=== PATIENT | female | born 1945 | race American Indian/Alaskan Native ===

== ENCOUNTER 2017-03-03 15:13 | Emergency (ER) | payer MEDICARE, MEDICAID ==
[2017-03-03] MEDS ORDERED: Sodium Chloride 0.9% 10 ML Syringe FLUSH PRN (15:39)
[2017-03-03 15:41] VITALS: BP 154/75
--- NOTE | 2017-03-03 15:48 | EDM.PDOC ---
ED HPI GENERAL MEDICAL PROBLEM - General Chief Complaint: Neuro Symptoms/Deficits Stated Complaint: IN BY AMBULANCE Time Seen by Provider: 03/03/17 15:38 Source of Information: Reports: Patient, Old Records History Limitations: Reports: No Limitations - History of Present Illness INITIAL COMMENTS - FREE TEXT/NARRATIVE: 71 yo female brought in by EMS from clinic with c/o mild confusion per staff. Pt was being evaluated for elevated liver enzymes and had an ultrasound that revealed ascites per the Provider from clinic. Pt c/o tenderness to mid abdomen and states that yesterday she had an episode of black stools. Also c/o decreased appetite. Pt is A&O x 3 upon arrival. Onset: Today Location: Reports: Abdomen Quality: Reports: Ache Severity: Mild Improves with: Reports: None Worsens with: Reports: None Associated Symptoms: Reports: No Other Symptoms - Related Data Allergies Allergy/AdvReac Type Severity Reaction Status Date / Time acetaminophen Allergy Cannot Verified 03/03/17 15:34 [From Darvocet-N] Remember propoxyphene Allergy Cannot Verified 03/03/17 15:34 [From Darvocet-N] Remember Home Meds: Home Meds Lansoprazole [Prevacid] 30 mg PO DAILY 04/12/14 [History] Methotrexate Sodium [Methotrexate] 8 tab PO ASDIRECTED 04/12/14 [History] Zolpidem [Ambien] 10 mg PO DAILY 04/12/14 [History] oxyCODONE 30 mg PO Q8H PRN 04/12/14 [History] Lisinopril 30 mg PO DAILY 09/10/14 [History] Albuterol [Proventil HFA] 2 puff PO ASDIRECTED 03/03/17 [History] Cholecalciferol (Vitamin D3) [Vitamin D3] 1,000 unit PO ASDIRECTED 03/03/17 [ History] Ergocalciferol (Vitamin D2) [Vitamin D2] 50,000 unit PO ASDIRECTED 03/03/17 [ History] Folic Acid 1 mg PO DAILY 03/03/17 [History] Gabapentin [Neurontin] 600 mg PO DAILY 03/03/17 [History] Social & Family History - Tobacco Use Smoking Status *Q: Former Smoker Years of Tobacco use: 40 Used Tobacco, but Quit: Yes Month Tobacco Last Used: unsure Second Hand Smoke Exposure: No - Alcohol Use Days Per Week of Alcohol Use: 0 - Recreational Drug Use Recreational Drug Use: No - Living Situation & Occupation Living situation: Reports: , with Family Occupation: Retired ED ROS GENERAL - Review of Systems Review Of Systems: ROS reveals no pertinent complaints other than HPI. ED EXAM, NEURO - Physical Exam Exam: See Below Exam Limited By: No Limitations General Appearance: Alert, WD/WN, No Apparent Distress Eye Exam: Bilateral Eye: Normal Inspection, PERRL Ears: Normal External Exam, Normal Canal, Hearing Grossly Normal, Normal TMs Nose: Normal Inspection, Normal Mucosa, No Blood Throat/Mouth: Normal Inspection, Normal Lips, Normal Teeth, Normal Gums, Normal Oropharynx, Normal Voice, No Airway Compromise Head Exam: Atraumatic, Normocephalic Neck: Normal Inspection, Supple, Non-Tender, Full Range of Motion Respiratory/Chest: No Respiratory Distress, Lungs Clear, Normal Breath Sounds, No Accessory Muscle Use, Chest Non-Tender Cardiovascular: Normal Peripheral Pulses, Regular Rate, Rhythm, No Edema, No Gallop, No JVD, No Murmur, No Rub GI/Abdominal: Normal Bowel Sounds, Soft, No Organomegaly, No Abnormal Bruit, No Mass, Distended, Tender (mid abdomen diffusely), Hepatomegaly Rectal (Female) Exam: Normal Exam, Normal Rectal Tone Neurological: Alert, Normal Mood/Affect, Normal Dorsiflexion, CN II-XII Intact, Normal Plantar Flexion, No Motor/Sensory Deficits, Oriented x 3 Skin Exam: Warm, Dry, Intact, Normal Color, No Rash Course - Vital Signs Last Recorded V/S: Last Vital Signs Temp 98.6 F 03/03/17 15:37 Pulse 77 03/03/17 15:37 Resp 16 03/03/17 15:37 BP 154/75 H 03/03/17 15:37 Pulse Ox 99 03/03/17 15:37 - Orders/Labs/Meds Orders: Active Orders 24 hr Category Date Time Status Sodium Chloride 0.9% [Saline Flush] Med 03/03/17 15:39 Active 10 ml FLUSH ASDIRECTED PRN Saline Lock Insert [OM.PC] Stat Oth 03/03/17 15:39 Ordered Medication Orders Sodium Chloride (Saline Flush) 10 ml FLUSH ASDIRECTED PRN PRN Reason: Keep Vein Open Last Admin: 03/03/17 16:47 Dose: 10 ml Labs: Laboratory Tests 03/03/17 03/03/17 03/03/17 Range/Units 15:49 15:49 15:49 WBC 8.0 (5.0-10.0) 10^3/uL RBC 3.65 L (4.2-5.4) 10^6/uL Hgb 13.2 (12.0-16.0) g/dL Hct 38.4 (37.0-47.0) % MCV 105.2 H (80-100) fL MCH 36.2 H (27.0-34.0) pg MCHC 34.4 (33.0-35.0) g/dL Plt Count 138 L (150-450) 10^3/uL Neut % (Auto) 60.9 (42.2-75.2) % Lymph % (Auto) 27.6 (20.5-50.1) % [place] % (Auto) 9.7 H (2-8) % Eos % (Auto) 1.6 (1.0-3.0) % Baso % (Auto) 0.2 (0.0-1.0) % Sodium 138 (135-145) mmol/L Potassium 4.0 (3.6-5.0) mmol/L Chloride 105 (101-111) mmol/L Carbon Dioxide 23.0 (21.0-31.0) mmol/L Anion Gap 14.0 BUN 6 L (7-18) mg/dL Creatinine 0.7 (0.6-1.3) mg/dL Est Cr Clr Drug Dosing 72.20 mL/min Estimated GFR (MDRD) > 60 BUN/Creatinine Ratio 8.57 Glucose 114 H (74-105) mg/dL Calcium 9.2 (8.4-10.2) mg/dl Total Bilirubin 3.7 H (0.2-1.0) mg/dL AST 61 H (10-42) IU/L ALT 29 (10-60) IU/L Alkaline Phosphatase 153 H (42-121) IU/L Ammonia 24 (11-35) umol/L Total Protein 6.8 (6.7-8.2) g/dl Albumin 3.0 L (3.2-5.5) g/dl Globulin 3.8 Albumin/Globulin Ratio 0.79 Meds: Medications Generic Name Dose Route Start Last Admin Trade Name Freq PRN Reason Stop Dose Admin Sodium Chloride 10 ml 03/03/17 15:39 03/03/17 16:47 Saline Flush FLUSH 10 ml ASDIRECTED PRN Administration Keep Vein Open - Re-Assessments/Exams Free Text/Narrative Re-Assessment/Exam: 03/03/17 17:30 Pt continues to remain A&O x 3. Able to speak on current events, denies pain currently. Worried about getting to her vehicle as she was brought by ambulance. Departure - Departure Time of Disposition: 17:32 Disposition: Home, Self-Care 01 Condition: Good Clinical Impression: Well adult exam Ascites Qualifiers: Ascites type: other type Qualified Code(s): R18.8 - Other ascites - Discharge Information Instructions: Ascites Forms: ED Department Discharge Additional Instructions: Follow up with your PCP as needed. return for worsening symptoms - My Orders Last 24 Hours: My Active Orders 03/03/17 15:39 Sodium Chloride 0.9% [Saline Flush] 10 ml FLUSH ASDIRECTED PRN Saline Lock Insert [OM.PC] Stat - Assessment/Plan Last 24 Hours: My Active Orders 03/03/17 15:39 Sodium Chloride 0.9% [Saline Flush] 10 ml FLUSH ASDIRECTED PRN Saline Lock Insert [OM.PC] Stat
[2017-03-03 16:39] LABS: CHLORIDE,CL 105 mmol/L (101-111); SODIUM,NA 138 mmol/L (135-145)
== END 2017-03-03 17:46 | disposition home or self-care (01) ==
LOC: DL.ED 15:13
DX: R18.8 Other ascites (principal); Z88.8 Allergy status to other drugs, medicaments and biological substances; Z79.899 Other long term (current) drug therapy; Z87.891 Personal history of nicotine dependence
CPT/HCPCS: 36415; 70450; 80053; 82140; 82272; 85025; 99285; J7050; 99284

== ENCOUNTER 2017-03-23 13:06 | Emergency (ER) | payer MEDICARE, MEDICAID, OTHER ==
--- NOTE | 2017-03-23 13:40 | EDM.PDOC ---
ED HPI GENERAL MEDICAL PROBLEM - General Chief Complaint: Gastrointestinal Problem Stated Complaint: FROM RADIOLOGY Time Seen by Provider: 03/23/17 13:38 Source of Information: Reports: Patient History Limitations: Reports: No Limitations - History of Present Illness INITIAL COMMENTS - FREE TEXT/NARRATIVE: 71 yo [place] Female sent over by CT scan. Pt. had Abd. CT which reports: ( Cirrhosis, larg ascites, varices. Proximal right uteteral calculi, bilat. nephrolithiasis Onset: Today Onset Date: 03/23/17 Onset Time: 12:00 Duration: Hour(s): Location: Reports: Abdomen, Generalized Severity: Moderate Improves with: Reports: None Worsens with: Reports: None - Related Data Allergies Allergy/AdvReac Type Severity Reaction Status Date / Time acetaminophen Allergy Cannot Verified 03/23/17 13:36 [From Darvocet-N] Remember propoxyphene Allergy Cannot Verified 03/23/17 13:36 [From Darvocet-N] Remember Home Meds: Home Meds Lansoprazole [Prevacid] 30 mg PO DAILY 04/12/14 [History] Methotrexate Sodium [Methotrexate] 8 tab PO ASDIRECTED 04/12/14 [History] Zolpidem [Ambien] 10 mg PO DAILY 04/12/14 [History] oxyCODONE 30 mg PO Q8H PRN 04/12/14 [History] Lisinopril 30 mg PO DAILY 09/10/14 [History] Albuterol [Proventil HFA] 2 puff PO ASDIRECTED 03/03/17 [History] Cholecalciferol (Vitamin D3) [Vitamin D3] 1,000 unit PO ASDIRECTED 03/03/17 [ History] Ergocalciferol (Vitamin D2) [Vitamin D2] 50,000 unit PO ASDIRECTED 03/03/17 [ History] Folic Acid 1 mg PO DAILY 03/03/17 [History] Gabapentin [Neurontin] 600 mg PO DAILY 03/03/17 [History] Past Medical History Cardiovascular History: Reports: Hypertension, Other (See Below) Other Cardiovascular History: carotid atheroscerosis Respiratory History: Reports: COPD Gastrointestinal History: Reports: GERD Musculoskeletal History: Reports: Other (See Below) Other Musculoskeletal History: degeneration of Disc disease Psychiatric History: Reports: Other (See Below) Other Psychiatric History: chronic pain syndrome Endocrine/Metabolic History: Reports: Vitamin D Deficiency, Other (See Below) Other Endocrine/Metabolic History: RA, folic acid deficiency, Hematologic History: Reports: Anemia, Other (See Below) Other Hematologic History: macrocytic anemia - Past Surgical History Female Surgical History: Reports: D&C Social & Family History - Tobacco Use Smoking Status *Q: Former Smoker Years of Tobacco use: 40 Packs/Tins Daily: 1.5 Used Tobacco, but Quit: Yes Month Tobacco Last Used: unsure Second Hand Smoke Exposure: No - Caffeine Use Caffeine Use: Reports: Coffee - Alcohol Use Days Per Week of Alcohol Use: 0 - Recreational Drug Use Recreational Drug Use: No - Living Situation & Occupation Living situation: Reports: , with Family Occupation: Retired ED ROS GENERAL - Review of Systems Review Of Systems: See Below Constitutional: Reports: Weakness, Fatigue, Weight Gain HEENT: Reports: No Symptoms Respiratory: Reports: No Symptoms Cardiovascular: Reports: No Symptoms Endocrine: Reports: No Symptoms GI/Abdominal: Reports: Abdominal Pain, Decreased Appetite, Distension : Reports: No Symptoms Musculoskeletal: Reports: No Symptoms Skin: Reports: No Symptoms Neurological: Reports: No Symptoms Psychiatric: Reports: No Symptoms Hematologic/Lymphatic: Reports: No Symptoms Immunologic: Reports: No Symptoms ED EXAM, GENERAL - Physical Exam Exam: See Below Exam Limited By: No Limitations General Appearance: Alert, WD/WN, No Apparent Distress Eye Exam: Bilateral Eye: EOMI, PERRL Ears: Normal External Exam Nose: Normal Inspection Throat/Mouth: Normal Inspection Head: Atraumatic Neck: Normal Inspection Respiratory/Chest: No Respiratory Distress, Lungs Clear Cardiovascular: Normal Peripheral Pulses, Regular Rate, Rhythm Peripheral Pulses: 2+: Femoral (L), Femoral (R) GI/Abdominal: Distended Back Exam: Normal Inspection Extremities: Normal Inspection Neurological: Alert, Oriented, CN II-XII Intact Psychiatric: Normal Affect, Normal Mood Skin Exam: Warm, Dry, Intact Lymphatic: No Adenopathy Course - Vital Signs Last Recorded V/S: Last Vital Signs Temp 37.4 C 03/23/17 13:31 Pulse 82 03/23/17 13:31 Resp 16 03/23/17 13:31 BP 147/78 H 03/23/17 13:31 Pulse Ox 98 03/23/17 13:31 - Orders/Labs/Meds Labs: Laboratory Tests 09/18/17 09/18/17 09/18/17 Range/Units 14:10 14:10 14:10 WBC 6.6 (5.0-10.0) 10^3/uL RBC 3.92 L (4.2-5.4) 10^6/uL Hgb 13.9 (12.0-16.0) g/dL Hct 42.2 (37.0-47.0) % MCV 107.7 H (80-100) fL MCH 35.5 H (27.0-34.0) pg MCHC 32.9 L (33.0-35.0) g/dL Plt Count 131 L (150-450) 10^3/uL Neut % (Auto) 56.2 (42.2-75.2) % Lymph % (Auto) 24.1 (20.5-50.1) % [place] % (Auto) 17.8 H (2-8) % Eos % (Auto) 1.4 (1.0-3.0) % Baso % (Auto) 0.5 (0.0-1.0) % PT 15.5 H (9.0-12.0) SEC INR 1.5 H (0.9-1.2) APTT 32.4 (22.0-34.0) SEC Sodium 138 (135-145) mmol/L Potassium 4.3 (3.6-5.0) mmol/L Chloride 102 (101-111) mmol/L Carbon Dioxide 25.0 (21.0-31.0) mmol/L Anion Gap 15.3 BUN 5 L (7-18) mg/dL Creatinine 0.8 (0.6-1.3) mg/dL Est Cr Clr Drug Dosing TNP Estimated GFR (MDRD) > 60 BUN/Creatinine Ratio 6.25 Glucose 117 H (74-105) mg/dL Calcium 9.4 (8.4-10.2) mg/dl Total Bilirubin 4.8 H (0.2-1.0) mg/dL AST 58 H (10-42) IU/L ALT 26 (10-60) IU/L Alkaline Phosphatase 141 H (42-121) IU/L Ammonia (11-35) umol/L Total Protein 7.1 (6.7-8.2) g/dl Albumin 3.1 L (3.2-5.5) g/dl Globulin 4.0 Albumin/Globulin Ratio 0.78 Urine Color (YELLOW) Urine Appearance (CLEAR) Urine pH (5.0-9.0) Ur Specific [place] (1.005-1.030) Urine Protein (NEGATIVE) Urine Glucose (UA) (NEGATIVE) Urine Ketones (NEGATIVE) Urine Occult Blood (NEGATIVE) Urine Nitrite (NEGATIVE) Urine Bilirubin (NEGATIVE) Urine Urobilinogen (0.2-1.0) mg/dL Ur Leukocyte Esterase (NEGATIVE) Urine RBC /HPF Urine WBC (0-5/HPF) /HPF Ur Epithelial Cells /HPF Calcium Oxalate Crystal /HPF Urine Bacteria (0-FEW/HPF) /HPF Urine Yeast (0/HPF) /HPF 03/23/17 03/23/17 Range/Units 14:10 14:33 WBC (5.0-10.0) 10^3/uL RBC (4.2-5.4) 10^6/uL Hgb (12.0-16.0) g/dL Hct (37.0-47.0) % MCV (80-100) fL MCH (27.0-34.0) pg MCHC (33.0-35.0) g/dL Plt Count (150-450) 10^3/uL Neut % (Auto) (42.2-75.2) % Lymph % (Auto) (20.5-50.1) % [place] % (Auto) (2-8) % Eos % (Auto) (1.0-3.0) % Baso % (Auto) (0.0-1.0) % PT (9.0-12.0) SEC INR (0.9-1.2) APTT (22.0-34.0) SEC Sodium (135-145) mmol/L Potassium (3.6-5.0) mmol/L Chloride (101-111) mmol/L Carbon Dioxide (21.0-31.0) mmol/L Anion Gap BUN (7-18) mg/dL Creatinine (0.6-1.3) mg/dL Est Cr Clr Drug Dosing Estimated GFR (MDRD) BUN/Creatinine Ratio Glucose (74-105) mg/dL Calcium (8.4-10.2) mg/dl Total Bilirubin (0.2-1.0) mg/dL AST (10-42) IU/L ALT (10-60) IU/L Alkaline Phosphatase (42-121) IU/L Ammonia 10 L (11-35) umol/L Total Protein (6.7-8.2) g/dl Albumin (3.2-5.5) g/dl Globulin Albumin/Globulin Ratio Urine Color Dark yellow (YELLOW) Urine Appearance Cloudy (CLEAR) Urine pH 6.0 (5.0-9.0) Ur Specific [place] 1.010 (1.005-1.030) Urine Protein Negative (NEGATIVE) Urine Glucose (UA) Negative (NEGATIVE) Urine Ketones Negative (NEGATIVE) Urine Occult Blood Moderate H (NEGATIVE) Urine Nitrite Negative (NEGATIVE) Urine Bilirubin Small H (NEGATIVE) Urine Urobilinogen 2.0 H (0.2-1.0) mg/dL Ur Leukocyte Esterase Trace H (NEGATIVE) Urine RBC 10-20 H /HPF Urine WBC 10-20 H (0-5/HPF) /HPF Ur Epithelial Cells Rare /HPF Calcium Oxalate Crystal Few H /HPF Urine Bacteria Few (0-FEW/HPF) /HPF Urine Yeast Rare H (0/HPF) /HPF Departure - Departure Time of Disposition: 15:06 Disposition: DC/Tfer to Other 70 Condition: Fair Clinical Impression: Hyperbilirubinemia, Coagulopathy Liver cirrhosis Qualifiers: Hepatic cirrhosis type: alcoholic cirrhosis Ascites presence: with ascites Qualified Code(s): K70.31 - Alcoholic cirrhosis of liver with ascites - Discharge Information Referrals: PCP,None [Primary Care Provider] - Forms: ED Department Discharge, Interfacility Transfer [facility]
[2017-03-23 14:41] LABS: CHLORIDE,CL 102 mmol/L (101-111); SODIUM,NA 138 mmol/L (135-145)
[2017-03-23] MEDS ORDERED: Sodium Chloride 0.9% 1,000 ML IV SCH (15:30)
[2017-03-23 15:37] VITALS: BP 155/77
== END 2017-03-23 16:00 | disposition other institution (70) ==
LOC: DL.ED 13:06
DX: K70.31 Alcoholic cirrhosis of liver with ascites (principal); D68.9 Coagulation defect, unspecified; I10 Essential (primary) hypertension; J44.9 Chronic obstructive pulmonary disease, unspecified; K21.9 Gastro-esophageal reflux disease without esophagitis; M06.9 Rheumatoid arthritis, unspecified; Z86.2 Personal history of diseases of the blood and blood-forming organs and certain disorders involving the immune mechanism; Z87.891 Personal history of nicotine dependence; Z79.899 Other long term (current) drug therapy; Z88.6 Allergy status to analgesic agent; Z87.442 Personal history of urinary calculi; R18.8 Other ascites; K74.60 Unspecified cirrhosis of liver; I83.90 Asymptomatic varicose veins of unspecified lower extremity; N20.2 Calculus of kidney with calculus of ureter
CPT/HCPCS: 36415; 71010; 74177; 80053; 81001; 82140; 85025; 85610; 85730; 96360; 99285; J7030; Q9967; 99284

== ENCOUNTER 2017-04-12 21:17 | Emergency (ER) | payer MEDICAID, MEDICARE, OTHER ==
[2017-04-12 22:07] VITALS: BP 131/65
[2017-04-12 23:20] LABS: CHLORIDE,CL 101 mmol/L (101-111); SODIUM,NA 135 mmol/L (135-145)
[2017-04-12] MEDS ORDERED: Ondansetron 4 MG/2 ML SDV ONE (23:56)
[2017-04-12] MEDS ORDERED: cefTRIAXone 1 GM AdvVial IV ONE (23:58)
[2017-04-13] MEDS ORDERED: Sodium Chloride 0.9% 50 ML ONE
== END 2017-04-13 00:55 ==
LOC: DL.ED 21:17
DX: N39.0 Urinary tract infection, site not specified (principal); R31.9 Hematuria, unspecified; N13.2 Hydronephrosis with renal and ureteral calculous obstruction; K74.60 Unspecified cirrhosis of liver; R18.8 Other ascites; D69.6 Thrombocytopenia, unspecified; I10 Essential (primary) hypertension
CPT/HCPCS: 36415; 74176; 80053; 81001; 82140; 82150; 83605; 83690; 83735; 85025; 85610; 87086; 96365; 96375; 99285

== ENCOUNTER 2017-12-18 00:43 | Emergency (ER) | payer MEDICARE, MEDICAID ==
[2017-12-18 00:36] VITALS: BP 114/68
--- NOTE | 2017-12-18 00:38 | EDM.PDOC ---
ED HPI GENERAL MEDICAL PROBLEM - General Stated Complaint: IN BY AMBULANCE Time Seen by Provider: 12/18/17 00:37 Source of Information: Reports: Patient History Limitations: Reports: No Limitations - History of Present Illness INITIAL COMMENTS - FREE TEXT/NARRATIVE: c/o 2 hours h/o epig pain with h/o GB problem and legs been swollen too. Right Upper Abdomen Pain Score (Numeric/FACES): 8 - Related Data Allergies Allergy/AdvReac Type Severity Reaction Status Date / Time acetaminophen Allergy Cannot Verified 12/18/17 00:37 [From Darvocet-N] Remember propoxyphene Allergy Cannot Verified 12/18/17 00:37 [From Darvocet-N] Remember Home Meds: Home Meds Lansoprazole [Prevacid] 30 mg PO DAILY 04/12/14 [History] Methotrexate Sodium [Methotrexate] 8 tab PO ASDIRECTED 04/12/14 [History] Lisinopril 30 mg PO DAILY 09/10/14 [History] Albuterol [Proventil HFA] 2 puff PO ASDIRECTED 03/03/17 [History] Folic Acid 1 mg PO DAILY 03/03/17 [History] Past Medical History HEENT History: Reports: Impaired Vision Other HEENT History: wears glasses Cardiovascular History: Reports: Hypertension, Other (See Below) Other Cardiovascular History: carotid atheroscerosis Respiratory History: Reports: COPD Gastrointestinal History: Reports: Cholelithiasis, GERD Genitourinary History: Reports: UTI, Recurrent 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, Musculoskeletal History: Reports: Other (See Below) Other Musculoskeletal History: degeneration of Disc disease Neurological History: Reports: None Psychiatric History: Reports: Other (See Below) Other Psychiatric History: chronic pain syndrome Endocrine/Metabolic History: Reports: Vitamin D Deficiency, Other (See Below) Other Endocrine/Metabolic History: RA, folic acid deficiency, Hematologic History: Reports: Anemia, Other (See Below) Other Hematologic History: macrocytic anemia Immunologic History: Reports: None Oncologic (Cancer) History: Reports: None Dermatologic History: Reports: None - Infectious Disease History Infectious Disease History: Reports: Chicken Pox, Measles, Mumps - Past Surgical History Head Surgeries/Procedures: Reports: None Female Surgical History: Reports: D&C Other Musculoskeletal Surgeries/Procedures:: Fx left ankle. Social & Family History - Family History Family Medical History: Noncontributory - Caffeine Use Caffeine Use: Reports: Coffee - Living Situation & Occupation Living situation: Reports: , with Family Occupation: Retired ED ROS GENERAL - Review of Systems Review Of Systems: ROS reveals no pertinent complaints other than HPI. ED EXAM, GI/ABD - Physical Exam Exam: See Below Exam Limited By: No Limitations General Appearance: Alert, WD/WN, Anxious Ears: Hearing Grossly Normal Throat/Mouth: Normal Voice, No Airway Compromise Head: Atraumatic Neck: Non-Tender, Full Range of Motion Respiratory/Chest: No Respiratory Distress, Rhonchi, Other (basilar) Cardiovascular: Regular Rate, Rhythm GI/Abdominal Exam: Soft, Tender, Other (RUQ tneder). No: Distended, Guarding, Rigid, Rebound Extremities: Pedal Edema, Other (3+ bilateal) Neurological: Alert, Oriented, Normal Cognition, No Motor/Sensory Deficits Psychiatric: Flat Affect Skin Exam: Warm, Dry, Jaundice Lymphatic: No Adenopathy Course - Vital Signs Last Recorded V/S: Last Vital Signs Temp 37.6 C 12/18/17 00:32 Pulse 105 H 12/18/17 00:32 Resp 20 12/18/17 00:32 BP 114/68 12/18/17 00:32 Pulse Ox 94 L 12/18/17 00:32 - Orders/Labs/Meds Orders: Active Orders 24 hr Category Date Time Status Chest 1V Frontal [CR] Urgent Exams 12/18/17 01:42 Taken Labs: Laboratory Tests 12/18/17 12/18/17 12/18/17 Range/Units 00:35 00:35 00:35 WBC 6.0 (5.0-10.0) 10^3/uL RBC 3.19 L (4.2-5.4) 10^6/uL Hgb 11.5 L D (12.0-16.0) g/dL Hct 34.1 L (37.0-47.0) % MCV 106.9 H (80-100) fL MCH 36.1 H (27.0-34.0) pg MCHC 33.7 (33.0-35.0) g/dL Plt Count 104 L (150-450) 10^3/uL Neut % (Auto) 74.0 (42.2-75.2) % Lymph % (Auto) 21.9 (20.5-50.1) % [place] % (Auto) 2.5 (2-8) % Eos % (Auto) 1.3 (1.0-3.0) % Baso % (Auto) 0.3 (0.0-1.0) % Sodium 127 L (135-145) mmol/L Potassium 4.2 (3.6-5.0) mmol/L Chloride 95 L (101-111) mmol/L Carbon Dioxide 25.0 (21.0-31.0) mmol/L Anion Gap 11.2 BUN 14 (7-18) mg/dL Creatinine 0.9 (0.6-1.3) mg/dL Est Cr Clr Drug Dosing 57.31 mL/min Estimated GFR (MDRD) > 60 BUN/Creatinine Ratio 15.55 Glucose 113 H (74-105) mg/dL Calcium 9.2 (8.4-10.2) mg/dl Total Bilirubin 8.7 H (0.2-1.0) mg/dL AST 39 (10-42) IU/L ALT 20 (10-60) IU/L Alkaline Phosphatase 123 H (42-121) IU/L Troponin I < 0.02 (0.00-0.02) ng/ml B-Natriuretic Peptide 72 (0-100) pg/ml Total Protein 8.0 (6.7-8.2) g/dl Albumin 2.6 L (3.2-5.5) g/dl Globulin 5.4 Albumin/Globulin Ratio 0.48 Amylase 74 (28-100) U/L Lipase 42 (22-51) U/L - Re-Assessments/Exams Free Text/Narrative Re-Assessment/Exam: 12/18/17 03:[address] Barroso @ [facility] who kindly accepted pt. Departure - Departure Time of Disposition: 03:45 Disposition: DC/Tfer to Acute Hospital 02 Condition: Fair Clinical Impression: Hyperbilirubinemia, Hyponatremia Abdominal pain Qualifiers: Abdominal location: right upper quadrant Qualified Code(s): R10.11 - Right upper quadrant pain Cirrhosis of liver Qualifiers: Hepatic cirrhosis type: alcoholic cirrhosis Ascites presence: with ascites Qualified Code(s): K70.31 - Alcoholic cirrhosis of liver with ascites - Discharge Information Forms: Interfacility Transfer EMTALA - My Orders Last 24 Hours: My Active Orders 12/18/17 01:42 Chest 1V Frontal [CR] Urgent - Assessment/Plan Last 24 Hours: My Active Orders 12/18/17 01:42 Chest 1V Frontal [CR] Urgent
[2017-12-18 01:03] LABS: CHLORIDE,CL 95 mmol/L (101-111); SODIUM,NA 127 mmol/L (135-145)
[2017-12-18] MEDS ORDERED: Morphine 2 MG/ML Syringe IVPUSH ONE (04:00)
== END 2017-12-18 04:33 ==
LOC: DL.ED 00:43
DX: K70.31 Alcoholic cirrhosis of liver with ascites (principal); E80.6 Other disorders of bilirubin metabolism; E87.1 Hypo-osmolality and hyponatremia; I10 Essential (primary) hypertension; Z88.6 Allergy status to analgesic agent; Z88.8 Allergy status to other drugs, medicaments and biological substances; Z79.899 Other long term (current) drug therapy
CPT/HCPCS: 36415; 71045; 80053; 82150; 83690; 83880; 84484; 85025; 96374; 99285; J2270